=== PATIENT | male | born 1960 | race Caucasian/White ===

== ENCOUNTER 2018-06-07 15:45 | Emergency (ER) | payer SELFPAY ==
--- NOTE | 2018-06-07 18:29 | RADIOLOGY REPORT (SQ) ---
EXAM DESCRIPTION: WRIST LEFT 3 VIEWS COMPLETED DATE/TIME: 06/07/2018 6:13 pm REASON FOR STUDY: eval for FB COMPARISON: None. EXAM PARAMETERS: NUMBER OF VIEWS: Three views. TECHNIQUE: AP, lateral and oblique radiographic images acquired of the left wrist LIMITATIONS: None. FINDINGS: MINERALIZATION: Normal. BONES: No acute fracture or dislocation. No worrisome bone lesions. JOINTS: No effusion. SOFT TISSUES: No significant soft tissue swelling. No radiopaque foreign body. OTHER: No other significant finding. IMPRESSION: NO FRACTURE. No radiopaque foreign body. TECHNICAL DOCUMENTATION: JOB ID: [id number] [place]-72 2010 [employer]- All Rights Reserved Reading location - IP/workstation name: [email or web address]
--- NOTE | 2018-06-07 19:17 | ER Document Report ---
HPI - HPI Time Seen by Provider: 06/07/18 17:39 Pain Level: 2 Notes: Patient is a 58-year-old male who presents with chief complaint of puncture wound to his left wrist. He states that he was crawling under a house doing some work yesterday when he feels that he got punctured by something. He states that there is really no pain however there is a discomfort and he thinks there may be a large splinter or something under the skin. The puncture wound is notated on the dorsal surface near the distal radius. Past Medical History - General Information source: Patient - Social History Smoking Status: Current Some Day Smoker Chew tobacco use (# tins/day): No Frequency of alcohol use: Social Drug Abuse: None Family History: Reviewed & Not Pertinent Patient has suicidal ideation: No Patient has homicidal ideation: No - Medical History Medical History: Negative Renal/ Medical History: Denies: Hx Peritoneal Dialysis Surgical Hx: Negative - Immunizations Immunizations up to date: Yes Vertical Provider Document - CONSTITUTIONAL Notes: PHYSICAL EXAMINATION: GENERAL: Well-appearing, well-nourished and in no acute distress. HEAD: Atraumatic, normocephalic. EYES: Pupils equal round extraocular movements intact, conjunctiva are normal. ENT: Nares patent NECK: Normal range of motion LUNGS: No respiratory distress Musculoskeletal: Normal range of motion NEUROLOGICAL: Normal speech, normal gait. PSYCH: Normal mood, normal affect. SKIN: Warm, Dry, normal turgor, no rashes or lesions noted. Abrasion noted to left wrist on the dorsal surface near the distal ulna. - INFECTION CONTROL TRAVEL OUTSIDE OF THE [place] IN LAST 30 DAYS: No Course - Re-evaluation Re-evalutation: X-ray was obtained and there is no radiopaque foreign body noted, no fracture or dislocation noted. Patient is convinced that there is a foreign body there that he would like removed. I did have my attending come to the bedside. I then brought the ultrasound to the bedside and ultrasound of the area, there is no identifiable foreign object that would be safe to explore as the area of puncture wound is very near to the artery. This was discussed with the patient. I did explain to the patient that even if there is a large splinter under the skin this will work itself out. - Vital Signs Vital signs: Temp Pulse Resp BP Pulse Ox 98.2 F 104 H 18 153/87 H 95 06/07/18 15:59 06/07/18 15:59 06/07/18 15:59 06/07/18 15:59 06/07/18 15:59 Discharge - Discharge Clinical Impression: Puncture wound Condition: Stable Disposition: HOME, SELF-CARE Additional Instructions: Puncture Wound You have a puncture wound. Because these wounds often penetrate deeply beneath the skin, you must observe them carefully for complications. The wound has been examined for retained foreign material and for damage to tendons and nerves. The area should be rested and elevated for 24 hours. Then you can use the injured part -- if moving it is painfree. Punctures of the hand or foot may require splinting or crutches. The dressing should be changed daily until the wound is healed. Watch for signs of infection. Call the doctor immediately if redness, swelling, warmth, increasing pain, or wound drainage occur. If you develop numbness, persistent bleeding, or inability to move the injured area, please return for prompt re-evaluation. Prescriptions: Cephalexin [Cephalexin 500 MG Tablet] 1 tab PO QID #20 tablet
[2018-06-07 19:22] VITALS: BP 145/87
== END 2018-06-07 19:22 | disposition home or self-care (01) ==
LOC: ER 15:45
DX: S61.532A Puncture wound without foreign body of left wrist, initial encounter (principal); X58.XXXA Exposure to other specified factors, initial encounter; F17.200 Nicotine dependence, unspecified, uncomplicated
CPT/HCPCS: 99284